=== PATIENT | female | born 2000 | race Caucasian/White ===

== ENCOUNTER 2021-01-24 21:10 | Emergency (ER) | payer BC ==
[2021-01-24] MEDS ORDERED: Ketorolac Tromethamine 30 MG/ML VIAL ONE (23:06)
[2021-01-24] MEDS ORDERED: Acetaminophen 500 MG TAB ONE (23:06)
[2021-01-24 23:10] LABS: #Lymphocytes 0.5 thou/uL (1.20-3.40); #Monocytes 0.8 thou/uL (0.11-0.59); %Basophils 0.1 % (0.0-1.0); %Eosinophils 0.1 % (0.0-10.0); %Lymphocytes 2.8 % (28.0-48.0); %Monocytes 4.6 % (0.0-4.0); %Neutrophils 92.3 % (31.0-61.0); Hemoglobin 12.7 g/dL (12.0-16.0); Mean Corpuscular HGB CONC 33.2 g/dL (32.0-36.0); Mean Corpuscular Hemoglobin 29.1 pg (25.0-35.0); Mean Corpuscular Volume 87.5 fL (78.0-98.0); Platelet Count 160 thou/uL (130-400); RBC Distribution Width 11.3 % (11.5-14.5); Red Blood Cell (RBC) Count 4.37 mill/uL (4.00-5.20); White Blood Cell (WBC) Count 17.3 thou/uL (4.8-10.8)
[2021-01-24 23:26] LABS: Bilirubin Negative (Negative); Blood, Urine Moderate (Negative); Glucose, Urine (Dipstick) Negative (Negative); Ketone, Urine Trace mg/dL (Negative); Leukocyte Negative (Negative); Nitrite Negative (Negative); Protein, Urine (Dipstick) Negative (Neg-Trace); Specific Gravity, Urine 1.025 (1.005-1.030); Urobilinogen 0.2 mg/dL (Less than 2); pH, Urine 6.5 (5.0-9.0)
[2021-01-24 23:28] LABS: Bacteria/HPF None Seen HPF (None Seen); Squamous Epithelial 0-3 HPF (0-3); WBC/HPF 0-3 HPF (0-3)
[2021-01-24 23:29] LABS: Clarity Clear (Clear)
[2021-01-24 23:33] LABS: ALT (SGPT) 13 U/L (8-55); AST (SGOT) 17 U/L (5-34); Albumin 4.5 g/dL (3.5-5.0); Alkaline Phosphatase 44 U/L (40-100); Anion Gap 11 mmol/L (10-20); BUN (Urea Nitrogen) 12 mg/dL (7.0-18.7); Bilirubin, Total 1.6 mg/dL (0.2-1.2); CK (CPK) 184 U/L (29-168); Calc. Creatinine Clearance 0 mL/min (70-130); Calcium 9.3 mg/dL (7.8-10.44); Carbon Dioxide 25 mmol/L (22-29); Chloride 107 mmol/L (98-107); Globulin 2.6 g/dL (2.4-3.5); Glucose 111 mg/dL (70-105); Potassium 3.8 mmol/L (3.5-5.1); Protein, Total 7.1 g/dL (6.0-8.3); Sodium 139 mmol/L (136-145)
[2021-01-25 01:41] LABS: Color Of CSF Supernatant COLORLESS (Colorless); Tube # 2; Unspun CSF Color COLORLESS (Colorless)
[2021-01-25 01:52] LABS: CSF, Glucose 68 mg/dl (40-70); CSF, Protein 31 mg/dL (15-40)
[2021-01-25 02:04] LABS: CSF Source CSF; Clarity Clear (Clear); Tube # 4
== END 2021-01-25 02:49 | disposition home or self-care (01) ==
LOC: ERS 21:10
DX: B34.9 Viral infection, unspecified (principal); M79.10 Myalgia, unspecified site; R51.9 Headache, unspecified
CPT/HCPCS: 62270; 80053; 81003; 81015; 82550; 82945; 83605; 84157; 85025; 87070; 87205; 89051; 93005; 96374; J1885